=== PATIENT | male | born 1980 | race Caucasian/White ===

== ENCOUNTER → 2020-07-04 | Outpatient (CLI) | payer BC | END | disposition home or self-care (01) | LOC: STAR 12:04 | PROVIDERS: ATTEND Surgery | DX: Z20.828 Contact with and (suspected) exposure to other viral communicable diseases (principal); K40.90 Unilateral inguinal hernia, without obstruction or gangrene, not specified as recurrent | CPT/HCPCS: 87635 ==

== ENCOUNTER 2020-07-10 06:59 | Day surgery (SDC) | payer BC ==
[~2020-07-10] VITALS: Ht 180.3 cm; Wt 139.7 kg
[2020-07-10] MEDS ORDERED: CHOL10003 PO (07:55)
[2020-07-10] MEDS ORDERED: VIT500TA3 PO (07:55)
[2020-07-10 07:57] VITALS: BP 158/99
[2020-07-10] MEDS ORDERED: CHLORHEXIDINE 15 ML UDC MM ONE (08:00)
[2020-07-10] MEDS ORDERED: LACTATED RINGERS 1,000 ML IV SCH (08:00)
[2020-07-10] MEDS ORDERED: BUPIVACAINE/PF 0.5% ONE (08:33)
[2020-07-10] MEDS ORDERED: EPINEPHRINE 1 MG/ML, 1ML ONE (08:33)
[2020-07-10] MEDS ORDERED: MIDAZOLAM 1 MG/ML, 2ML ONE (08:39)
[2020-07-10] MEDS ORDERED: FENTANYL PF 250 MCG/5ML ONE (08:39)
[2020-07-10] MEDS ORDERED: HYDR-3248 PO (08:46)
[2020-07-10] MEDS ORDERED: CEFAZOLIN 1,000 MG ONE (08:50)
[2020-07-10] MEDS ORDERED: DEXAMETHASONE 4 MG/ML, 1ML ONE (08:50)
[2020-07-10] MEDS ORDERED: ONDANSETRON 2MG/ML, 2ML ONE (08:50)
[2020-07-10] MEDS ORDERED: ROCURONIUM 10 MG/ML,10ML ONE (08:50)
[2020-07-10] MEDS ORDERED: PROPOFOL 10 MG/ML, 20ML ONE (08:50)
[2020-07-10] MEDS ORDERED: METHOCARBAMOL 1,000 MG in DEXTROSE 5% 100 ML IV PRN (09:00)
[2020-07-10] MEDS ORDERED: PROMETHAZINE 25 MG/ML, 1ML IVPush PRN (09:00)
[2020-07-10] MEDS ORDERED: PROMETHAZINE 25 MG SUPP PR PRN (09:00)
[2020-07-10] MEDS ORDERED: ACETAMINOPHEN 325 MG TABLET PO PRN (09:00)
[2020-07-10] MEDS ORDERED: MEPERIDINE/PF 25MG/0.5ML IVPush PRN (09:00)
[2020-07-10] MEDS ORDERED: HYDROmorphone 1 MG/ML, 1ML INJ IVPush PRN (09:00)
[2020-07-10] MEDS ORDERED: FENTANYL PF 100 MCG/2ML IV PRN (09:00)
[2020-07-10] MEDS ORDERED: LORazepam 2 MG/ML, 1ML IVPush PRN (09:00)
[2020-07-10] MEDS ORDERED: OXYcodone 5 MG/5 ML ORAL.SOL UDC PO PRN (09:00)
[2020-07-10] MEDS ORDERED: ONDANSETRON 2MG/ML, 2ML IVPush PRN (09:00)
[2020-07-10] MEDS ORDERED: SUGAMMADEX 200 MG/2 ML IVPush ONE ×2 (09:52)
== END 2020-07-10 12:25 | disposition home or self-care (01) ==
LOC: OUT 06:59
PROVIDERS: ATTEND Surgery
DX: K40.20 Bilateral inguinal hernia, without obstruction or gangrene, not specified as recurrent (principal); D17.6 Benign lipomatous neoplasm of spermatic cord; I10 Essential (primary) hypertension; E66.01 Morbid (severe) obesity due to excess calories; Z79.899 Other long term (current) drug therapy; Z87.891 Personal history of nicotine dependence; Z82.49 Family history of ischemic heart disease and other diseases of the circulatory system; Z83.3 Family history of diabetes mellitus; Z80.9 Family history of malignant neoplasm, unspecified
CPT/HCPCS: 49650; C1781; J0171; J0690; J1100; J2250; J2405; J2704; J3010; J7120; S2900